=== PATIENT | female | born 1960 | race Caucasian/White ===

== ENCOUNTER 2016-05-05 04:35 | Emergency (ER) | payer BC ==
[~2016-05-05] VITALS: Ht 160 cm; Wt 72.9 kg
[~2016-05-05 04:35] MED LIST: ALAVERT10 M1 PO; COLACE100 MG PO; Claritin,Alavart PO; ESTRACE0.5 MG PO; FERROUS SULPHATE PO; LEVOXYL50 MCG PO; LEXAPRO20 MG PO; LIDOCAINE15 GM TP; MULTIVITAMINS1 EAC3 PO; PERCOCET 5/31 TABLET PO; PROAIR HFA8.5 GM IH; SYNTHROID50 MCG PO; WELLBUTRIN XL300 MG PO
[2016-05-05 05:29] LABS: CHLORIDE 110 mEq/L (99-109); POTASSIUM 3.6 mEq/L (3.7-5.4); SODIUM 144 mEq/L (136-147)
[2016-05-05 05:31] LABS: GLUCOSE 108 mg/dL (70-99)
[2016-05-05 05:32] LABS: ANION GAP 10 MEQ/L (2-14)
[2016-05-05 05:35] LABS: GFR ESTIMATE (CALCULATED) > 59 mL/min/
[2016-05-05 05:36] LABS: UREA NITROGEN (BUN) 13 mg/dL (9-23)
[2016-05-05 05:43] LABS: HEMATOCRIT 34.3 % (36.0-46.0); MCH 26.7 PG (29.0-34.0); MCHC 32.4 G/DL (30.0-36.0); MCV 82.5 FL (83-99); MEAN PLAT.VOLUME 12.1 uM^3 (9.5-12.4); PLATELET COUNT 163 K/uL (156-360); RBC DIS.WIDTH-CV 14.1 % (11.8-14.6); RBC DIS.WIDTH-SD 41.7 % (39-53); RED BLOOD COUNT 4.16 M/uL (3.80-5.20); WHITE BLOOD COUNT 7.6 K/uL (4.1-10.2)
[2016-05-05 06:03] LABS: INFLUENZA A VIRAL ANTIGEN NEGATIVE; INFLUENZA B VIRAL ANTIGEN NEGATIVE
[2016-05-05] MEDS ORDERED: HYCODAN SYRUP480 ML PO (06:12)
[2016-05-05] MEDS ORDERED: PREDNISONE10 MG PO (06:12)
[2016-05-05] MEDS ORDERED: VENTOLIN HFA18 GM IH (06:12)
[2016-05-05 06:25] VITALS: BP 124/80
== END 2016-05-05 06:30 | disposition home or self-care (01) ==
LOC: EME 04:35
PROVIDERS: Emergency Medicine
DX: J44.0 Chronic obstructive pulmonary disease with (acute) lower respiratory infection (principal); J20.9 Acute bronchitis, unspecified; B34.9 Viral infection, unspecified; E03.9 Hypothyroidism, unspecified; K21.9 Gastro-esophageal reflux disease without esophagitis; J45.909 Unspecified asthma, uncomplicated; F17.200 Nicotine dependence, unspecified, uncomplicated
CPT/HCPCS: 71020; 80048; 83880; 85027; 87502; 94640; 99281; 99284; J7512